=== PATIENT | male | born 1965 | race Caucasian/White ===

== ENCOUNTER 2016-07-15 12:15 | Emergency (ER) | payer OTHER ==
[~2016-07-15] VITALS: Ht 188 cm; Wt 106.8 kg
[~2016-07-15 12:15] MED LIST: LEVO750T39 PO; PRE20 PO
[2016-07-15 12:21] VITALS: BP 153/89; O2SAT 97
--- NOTE | 2016-07-15 12:29 | ED.REPORT ---
HPI-Dyspnea / Wheezing Date of Service Jul 15, 2016 ED Provider: Dr. Hobbs Pt is a 51 year old male with a hx of COPD, HTN presenting to the ED via EMS complaining of SOB onset suddenly while lying down at 1130 today. He reports that he has had a cough for the past 2 months which has exacerbated his COPD. He used his Albuterol nebulizer at home without relief. Denies fever. He reports that he is still a current every day smoker. Nursing Notes Stated Complaint: SHORTNESS OF BREATH Chief Complaint: Respiratory Complaints Nursing Notes Reviewed: Yes Allergies: Coded Allergies: No Known Allergies (Verified Allergy, Unknown, 07/15/16) Scheduled Levofloxacin (Levofloxacin) 750 Mg Tablet 750 MG PO DAILY Prednisone (PredniSONE) 20 Mg Tablet 40 MG PO DAILY General Time Seen by MD: 12:28 Chief Complaint Shortness of breath Hx Obtained From: Patient, EMS Arrived By: Ambulance Sudden in Onset?: Yes Onset Occurred: 1 - 4 hours ago Symptom Duration: Since onset Severity: Current: No pain currently Severity: Maximum: No pain Recent Healthcare: No recent doctor visit, No recent hospitalization Similar Sx Previous: Yes Risk Factors CAD Risk Stratification Hypertension Past Medical History Past Medical History COPD Reports: Hypertension Past Surgical History Right knee arthroplasty Right lateral malleolus surgery ( 8 months ago) Smoking History Current Every Day Smoker Social History Alcohol Use: "Social" Drug Use: Denies drug use Occupation Works for the [email or web address] Ambulatory Status Independent Review of Systems Constitutional: Denies: Fever Respiratory: Reports: Non-productive cough, Shortness of breath Complete sys rev & neg: except as marked. Physical Exam Initial Vital Signs Vital Signs (First) Date Time Temp Pulse Resp B/P Pulse Ox O2 Delivery O2 Flow Rate FiO2 07/15/16 12:21 153/89 97 Nasal Cannula 2 07/15/16 12:24 36.2 07/15/16 13:10 97 18 Initial VS: Reviewed Head / Eyes: Atraumatic, Normocephalic, PERRL ENT: Mucous membranes moist Abdomen / GI: Soft, Non-tender, No distention Extremities: No swelling Skin: Warm, Dry, No cyanosis Neurologic: Alert, Oriented, Nonfocal Psychiatric: Mood/affect normal, Behavior normal, Normal thought content General/Constitutional: Awake, Alert, Well appearing Neck: Atraumatic, Supple Respiratory / Chest: Atraumatic Resp Distress / Stridor: Positive: Resp distress moderate Wheezing / Retractions: Positive: Wheeze insp/exp diffuse Re-Eval/Medical Decision Med Decision/Clinical Course Given the sudden onset and complete resolution with minimal intervention I believe that mucus plugging as the most likely explanation for the symptoms this gentleman experienced today. I had a lengthy discussion with him regarding the necessity and expected benefits of smoking cessation. Re-Evaluation/Progress : Time of Eval: 13:40 Patient Status: Condition improved Re-Evaluation/Progress Note: Performed physical exam. Mild excretory wheezing only. Counseled Regarding: Diagnosis, Lab results, Need for follow-up, When/why to return to ED Discharge & Departure Impression: Primary Impression: Acute bronchospasm Additional Impression: Smoking addiction Disposition: Home Discharge Condition All VS Reviewed: Yes Condition: Improved Patient Instructions: Emphysema (ED) Additional Instructions: I do not think your symptoms were due to a pneumonia or another dangerous cause. Your shortness of breath was likely caused by mucus clogging your airway. Of course I recommend that you quit smoking and that you use your other inhaled medications as needed. If you have any significant or persistent symptoms, I recommend follow-up at the clinic later this week. Please return to the emergency department if he has any other severe symptoms. Referrals: Meri Cortes MD (PCP) Scribe Attestation Portions of this note were transcribed by Zachary Flores. I, Dr. Hobbs personally performed the history, physical exam and medical decision-making; I reviewed and confirmed the accuracy of the information in the transcribed note. Signed by: Shiva Long, 07/15/2016 and 1411. copies to: Meri Cortes MD, Kirk H MD Jul 15, 2016 12:29 ZACHARY FLORES Jul 15, 2016 12:52
[2016-07-15 13:10] VITALS: BP 146/56; PULSE 97; RESP 18; O2SAT 97
[2016-07-15 14:13] VITALS: BP 146/56; PULSE 86; RESP 18; O2SAT 96
== END 2016-07-15 14:05 | disposition home or self-care (01) ==
LOC: EDUNIT# 12:15 → EDBD 12:15 → SED 12:15
DX: J98.01 Acute bronchospasm (principal); I10 Essential (primary) hypertension; J44.9 Chronic obstructive pulmonary disease, unspecified; F17.200 Nicotine dependence, unspecified, uncomplicated